=== PATIENT | female | born 1975 | race Two or more races ===

== ENCOUNTER → 2022-10-21 | Outpatient (CLI) | payer OTHER ==
[2022-10-21 15:58] LABS: BASO % 0.4 % (0.0-1.0); EOS # 0.1 10^3/uL (0.0-0.5); EOS % 0.7 % (0.0-3.0); HEMATOCRIT 40.3 % (36.0-47.0); HEMOGLOBIN 13.1 g/dl (12.0-15.5); LYMPH # 2.2 10^3/uL (1.5-5.0); LYMPH % 32.3 % (24.0-44.0); MEAN CORPUSCULAR HGB CONC 32.5 g/dl (32.0-36.5); MEAN CORPUSCULAR VOLUME 95.5 fl (80.0-96.0); MONO # 0.7 10^3/uL (0.0-0.8); MONO % 9.8 % (2.0-8.0); NEUTROPHILS # 3.9 10^3/uL (1.5-8.5); NEUTROPHILS % 56.5 % (36.0-66.0); PLATELET COUNT, AUTOMATED 197 10^3/uL (150-450); RED BLOOD COUNT 4.22 10^6/uL (4.00-5.40); WHITE BLOOD COUNT 6.8 10^3/uL (4.0-10.0)
== END ==
LOC: M PLALAB 14:15
PROVIDERS: ATTEND Internal Medicine Hematology
DX: I82.90 Acute embolism and thrombosis of unspecified vein (principal)

== ENCOUNTER 2022-11-05 13:30 | Inpatient (IN) | payer OTHER ==
[~2022-11-05] VITALS: Ht 170.2 cm; Wt 88.4 kg
[2022-11-05] MEDS ORDERED: AMLO10TA PO (13:43)
[2022-11-05] MEDS ORDERED: TOPI100T9 PO (13:43)
[2022-11-05] MEDS ORDERED: SERT-141 PO (13:43)
[2022-11-05] MEDS ORDERED: ELIQ5TAB PO (13:43)
[2022-11-05] MEDS ORDERED: HYDR50TA70 PO ×2 (13:43→21:12)
[2022-11-05] MEDS ORDERED: MORPHINE 2 MG/ML 1ML VIAL IV ONE (14:05)
[2022-11-05 15:20] LABS: BASO % 0.3 % (0.0-1.0); EOS # 0.1 10^3/uL (0.0-0.5); EOS % 0.7 % (0.0-3.0); HEMATOCRIT 35.9 % (36.0-47.0); HEMOGLOBIN 11.6 g/dl (12.0-15.5); LYMPH # 1.9 10^3/uL (1.5-5.0); LYMPH % 27.9 % (24.0-44.0); MEAN CORPUSCULAR HGB CONC 32.3 g/dl (32.0-36.5); MONO # 0.6 10^3/uL (0.0-0.8); MONO % 9.2 % (2.0-8.0); NEUTROPHILS # 4.2 10^3/uL (1.5-8.5); NEUTROPHILS % 61.6 % (36.0-66.0); PLATELET COUNT, AUTOMATED 309 10^3/uL (150-450); RED BLOOD COUNT 3.74 10^6/uL (4.00-5.40); WHITE BLOOD COUNT 6.9 10^3/uL (4.0-10.0)
[2022-11-05 15:41] LABS: CPK CREATINE PHOSPHOKINASE 79 U/L (34-145)
[2022-11-05 15:42] LABS: ALBUMIN 3.4 G/DL (3.2-5.2); ALKALINE PHOSPHATASE 94 U/L (46-116); ALT/SGPT 13 U/L (7.0-40); AST/SGOT 9 U/L (<34); BILIRUBIN,DIRECT < 0.1 MG/DL (<0.4); BILIRUBIN,TOTAL 0.3 MG/DL (0.3-1.2); BLOOD UREA NITROGEN 14 MG/DL (9-23); CALCIUM LEVEL 10.6 MG/DL (8.5-10.1); CARBON DIOXIDE LEVEL 22 MMOL/L (20-31); CHLORIDE LEVEL 111 MMOL/L (98-107); CK-MB VALUE MASS < 1.0 NG/ML (<3.6); CREATININE FOR GFR 0.67 MG/DL (0.55-1.30); GLOMERULAR FILTRATION RATE > 60.0 (>58); GLUCOSE, FASTING 91 MG/DL (60-100); MB/CK RELATIVE INDEX 1.26 (< OR =4); SODIUM LEVEL 139 MMOL/L (136-145); TOTAL PROTEIN 6.9 G/DL (5.7-8.2)
[2022-11-05] MEDS ORDERED: ISOVUE-370 76% 100ML VIAL As Ordered ONE (16:38)
[2022-11-05 16:56] LABS: ABG BASE EXCESS -4.3 (-2.0-2.0); ABG HCO3 19.6 MMOL/L (22.0-26.0); ABG O2 SATURATION 97.4 % (95.0-99.0); ABG PARTIAL PRESSURE CO2 32.4 mmHg (35.0-45.0); ABG PARTIAL PRESSURE O2 91.4 mmHg (75.0-100.0); ABG STANDARD HCO3 20.9 MMOL/L. (22.0-26.0); ABG TOTAL CO2 20.6 MMOL/L (22.0-29.0)
[2022-11-05 18:54] VITALS: O2SAT 89
[2022-11-05 18:57] LABS: CK-MB VALUE MASS 1.2 NG/ML (<3.6)
[2022-11-05 19:01] LABS: MB/CK RELATIVE INDEX 1.64 (< OR =4)
[2022-11-05] MEDS ORDERED: MED REC IN PROGRESS XX SCH (19:05)
[2022-11-05] MEDS ORDERED: LIDOCAINE 5% (LIDODERM) PATCH TD ONE (20:00)
[2022-11-05] MEDS ORDERED: TEMAZEPAM 7.5 MG CAP PO PRN (20:00)
[2022-11-05] MEDS ORDERED: ACETAMINOPHEN TAB 650MG DOSE (2X325MG) PO PRN (20:00)
[2022-11-05 20:48] LABS: FERRITIN 25.7 NG/ML (7.3-270.7)
[2022-11-05] MEDS ORDERED: ACET-840 PO (21:13)
[2022-11-05] MEDS ORDERED: MELA3TAB7 PO (21:14)
[2022-11-05] MEDS ORDERED: HOME MED LIST COMPLETE! XX SCH (21:15)
[2022-11-05 21:23] LABS: INR 1.03; PROTHROMBIN TIME 13.7 SECONDS (12.5-14.5)
[2022-11-05 21:24] LABS: PARTIAL THROMBOPLASTIN TIME 31.5 SECONDS (24.8-34.2)
[2022-11-05] MEDS: ENOXAPARIN 100MG/1ML SYRINGE (J1650 PER 10MG) SC SCH (21:38)
[2022-11-05 22:28] VITALS: BP 136/70; TEMP 97.1; O2SAT 100
[2022-11-05] MEDS: MORPHINE 2 MG/ML 1ML VIAL IV PRN (22:49)
[2022-11-05] MEDS: TOPIRAMATE (TopAMAX) 100 MG TAB PO SCH (23:14)
[2022-11-06] MEDS ORDERED: NS 1,000 ML IV SCH (02:05)
[2022-11-06 03:58] VITALS: BP 104/59; TEMP 97; O2SAT 96
[2022-11-06] MEDS: MORPHINE 2 MG/ML 1ML VIAL IV PRN ×4 (04:12→21:29)
[2022-11-06 04:40] VITALS: BP 128/78
[2022-11-06 06:39] LABS: HEMATOCRIT 33.6 % (36.0-47.0); HEMOGLOBIN 10.9 g/dl (12.0-15.5); MEAN CORPUSCULAR HEMOGLOBIN 31.1 pg (27.0-33.0); MEAN CORPUSCULAR HGB CONC 32.4 g/dl (32.0-36.5); PLATELET COUNT, AUTOMATED 268 10^3/uL (150-450); WHITE BLOOD COUNT 5.3 10^3/uL (4.0-10.0)
[2022-11-06 07:15] LABS: PROCALCITONIN <0.04 ng/ml
[2022-11-06 07:21] LABS: ALKALINE PHOSPHATASE 90 U/L (46-116); ALT/SGPT 12 U/L (7.0-40); AST/SGOT < 8 U/L (<34); BILIRUBIN,TOTAL 0.3 MG/DL (0.3-1.2); BLOOD UREA NITROGEN 14 MG/DL (9-23); CALCIUM LEVEL 9.1 MG/DL (8.5-10.1); CARBON DIOXIDE LEVEL 21 MMOL/L (20-31); CHLORIDE LEVEL 113 MMOL/L (98-107); CREATININE FOR GFR 0.64 MG/DL (0.55-1.30); GLOMERULAR FILTRATION RATE > 60.0 (>58); GLUCOSE, FASTING 92 MG/DL (60-100); MAGNESIUM LEVEL 1.9 MG/DL (1.8-2.4); POTASSIUM SERUM 3.8 MMOL/L (3.5-5.1); SODIUM LEVEL 141 MMOL/L (136-145)
[2022-11-06 08:02] VITALS: BP 112/76; TEMP 97.6; O2SAT 96
[2022-11-06] MEDS: ENOXAPARIN 100MG/1ML SYRINGE (J1650 PER 10MG) SC SCH ×2 (09:26→21:03)
[2022-11-06] MEDS: FERROUS SULFATE 325MG TAB PO SCH (09:26)
[2022-11-06] MEDS: SERTRALINE HCL 50 MG TAB PO SCH (09:26)
[2022-11-06 15:57] VITALS: BP 139/86; TEMP 97.5; O2SAT 98
[2022-11-06] MEDS ORDERED: PILL CUTTER 1 EACH XX ONE (16:07)
[2022-11-06] MEDS: ACETAMINOPHEN TAB 650MG DOSE (2X325MG) PO SCH ×2 (16:11→21:03)
[2022-11-06] MEDS: WARFARIN SOD 5MG TAB PO SCH (16:11)
[2022-11-06 16:38] LABS: INR 0.95; PARTIAL THROMBOPLASTIN TIME 35.4 SECONDS (24.8-34.2); PROTHROMBIN TIME 12.9 SECONDS (12.5-14.5)
[2022-11-06 19:06] VITALS: O2SAT 96
[2022-11-06 20:56] VITALS: BP 135/79; TEMP 97.9; O2SAT 96
[2022-11-06] MEDS: TOPIRAMATE (TopAMAX) 100 MG TAB PO SCH (21:01)
[2022-11-07] MEDS: MORPHINE 2 MG/ML 1ML VIAL IV PRN ×2 (01:50→05:35)
[2022-11-07 05:45] VITALS: BP 120/68; TEMP 97.7; O2SAT 94
[2022-11-07 06:10] LABS: HEMATOCRIT 36.4 % (36.0-47.0); HEMOGLOBIN 11.6 g/dl (12.0-15.5); MEAN CORPUSCULAR HEMOGLOBIN 30.7 pg (27.0-33.0); MEAN CORPUSCULAR HGB CONC 31.9 g/dl (32.0-36.5); MEAN CORPUSCULAR VOLUME 96.3 fl (80.0-96.0); PLATELET COUNT, AUTOMATED 276 10^3/uL (150-450); RED BLOOD COUNT 3.78 10^6/uL (4.00-5.40); WHITE BLOOD COUNT 5.4 10^3/uL (4.0-10.0)
[2022-11-07 06:15] LABS: INR 0.95; PROTHROMBIN TIME 12.9 SECONDS (12.5-14.5)
[2022-11-07 06:16] LABS: PARTIAL THROMBOPLASTIN TIME 37.7 SECONDS (24.8-34.2)
[2022-11-07 06:25] LABS: ALBUMIN 3.1 G/DL (3.2-5.2); ALKALINE PHOSPHATASE 97 U/L (46-116); ALT/SGPT 21 U/L (7.0-40); AST/SGOT 21 U/L (<34); BILIRUBIN,TOTAL 0.3 MG/DL (0.3-1.2); BLOOD UREA NITROGEN 10 MG/DL (9-23); CALCIUM LEVEL 9.2 MG/DL (8.5-10.1); CARBON DIOXIDE LEVEL 22 MMOL/L (20-31); CHLORIDE LEVEL 111 MMOL/L (98-107); CREATININE FOR GFR 0.67 MG/DL (0.55-1.30); GLOMERULAR FILTRATION RATE > 60.0 (>58); GLUCOSE, FASTING 84 MG/DL (60-100); SODIUM LEVEL 139 MMOL/L (136-145); TOTAL PROTEIN 6.3 G/DL (5.7-8.2)
[2022-11-07] MEDS ORDERED: KETOROLAC 30 MG/ML 1ML VIAL IV ONE (08:20)
[2022-11-07] MEDS ORDERED: hydrOXYzine 50 MG TAB PO PRN (08:20)
[2022-11-07] MEDS: ENOXAPARIN 100MG/1ML SYRINGE (J1650 PER 10MG) SC SCH ×2 (08:57→21:18)
[2022-11-07] MEDS: SERTRALINE HCL 50 MG TAB PO SCH (08:58)
[2022-11-07] MEDS: FERROUS SULFATE 325MG TAB PO SCH (08:58)
[2022-11-07] MEDS: ACETAMINOPHEN TAB 650MG DOSE (2X325MG) PO SCH (08:58)
[2022-11-07 14:00] VITALS: BP 116/71; TEMP 97.7; O2SAT 96
[2022-11-07] MEDS: PERCOCET 5MG/325MG TAB PO PRN ×2 (14:17→21:15)
[2022-11-07] MEDS: IBUPROFEN 600MG TAB PO SCH ×2 (15:29→21:15)
[2022-11-07] MEDS: WARFARIN SOD 5MG TAB PO SCH (17:20)
[2022-11-07] MEDS: TOPIRAMATE (TopAMAX) 100 MG TAB PO SCH (21:14)
[2022-11-07] MEDS: RAMELTEON 8 MG TAB (ROZEREM) PO SCH (21:15)
[2022-11-07 22:00] VITALS: BP 122/74; TEMP 98.2; O2SAT 97
[2022-11-08] MEDS: PERCOCET 5MG/325MG TAB PO PRN ×4 (03:11→21:20)
[2022-11-08 06:00] VITALS: BP 116/74; TEMP 97.5; O2SAT 97
[2022-11-08] MEDS: IBUPROFEN 600MG TAB PO SCH ×3 (06:04→21:19)
[2022-11-08 06:33] LABS: HEMATOCRIT 35.2 % (36.0-47.0); HEMOGLOBIN 11.4 g/dl (12.0-15.5); MEAN CORPUSCULAR HEMOGLOBIN 31.1 pg (27.0-33.0); MEAN CORPUSCULAR HGB CONC 32.4 g/dl (32.0-36.5); MEAN CORPUSCULAR VOLUME 95.9 fl (80.0-96.0); PLATELET COUNT, AUTOMATED 280 10^3/uL (150-450); RED BLOOD COUNT 3.67 10^6/uL (4.00-5.40); WHITE BLOOD COUNT 4.8 10^3/uL (4.0-10.0)
[2022-11-08 06:41] VITALS: O2SAT 95
[2022-11-08 06:47] LABS: INR 1.09; PROTHROMBIN TIME 14.3 SECONDS (12.5-14.5)
[2022-11-08 06:48] LABS: PARTIAL THROMBOPLASTIN TIME 41.7 SECONDS (24.8-34.2)
[2022-11-08 07:09] LABS: ALKALINE PHOSPHATASE 98 U/L (46-116); ALT/SGPT 21 U/L (7.0-40); AST/SGOT 18 U/L (<34); BILIRUBIN,TOTAL 0.2 MG/DL (0.3-1.2); BLOOD UREA NITROGEN 14 MG/DL (9-23); CALCIUM LEVEL 9.3 MG/DL (8.5-10.1); CARBON DIOXIDE LEVEL 21 MMOL/L (20-31); CHLORIDE LEVEL 110 MMOL/L (98-107); CREATININE FOR GFR 0.73 MG/DL (0.55-1.30); GLOMERULAR FILTRATION RATE > 60.0 (>58); GLUCOSE, FASTING 89 MG/DL (60-100); POTASSIUM SERUM 4.1 MMOL/L (3.5-5.1); SODIUM LEVEL 140 MMOL/L (136-145); TOTAL PROTEIN 6.2 G/DL (5.7-8.2)
[2022-11-08] MEDS: ENOXAPARIN 100MG/1ML SYRINGE (J1650 PER 10MG) SC SCH ×2 (09:25→21:20)
[2022-11-08] MEDS: FERROUS SULFATE 325MG TAB PO SCH (09:26)
[2022-11-08] MEDS: SERTRALINE HCL 50 MG TAB PO SCH (09:26)
[2022-11-08 14:00] VITALS: BP 135/75; TEMP 97.7; O2SAT 97
[2022-11-08] MEDS: WARFARIN SOD 5MG TAB PO SCH (17:18)
[2022-11-08] MEDS: RAMELTEON 8 MG TAB (ROZEREM) PO SCH (21:19)
[2022-11-08] MEDS: TOPIRAMATE (TopAMAX) 100 MG TAB PO SCH (21:19)
[2022-11-08 21:54] VITALS: BP 132/75; TEMP 97.9; O2SAT 97
[2022-11-08 22:00] VITALS: O2SAT 96
[2022-11-09] MEDS: PERCOCET 5MG/325MG TAB PO PRN ×4 (03:58→21:26)
[2022-11-09 06:00] VITALS: BP 122/72; TEMP 97.7; O2SAT 96
[2022-11-09] MEDS: IBUPROFEN 600MG TAB PO SCH ×3 (06:39→21:22)
[2022-11-09 06:43] LABS: HEMATOCRIT 34.9 % (36.0-47.0); HEMOGLOBIN 11.2 g/dl (12.0-15.5); MEAN CORPUSCULAR HEMOGLOBIN 30.7 pg (27.0-33.0); MEAN CORPUSCULAR HGB CONC 32.1 g/dl (32.0-36.5); MEAN CORPUSCULAR VOLUME 95.6 fl (80.0-96.0); PLATELET COUNT, AUTOMATED 238 10^3/uL (150-450); RED BLOOD COUNT 3.65 10^6/uL (4.00-5.40); WHITE BLOOD COUNT 4.9 10^3/uL (4.0-10.0)
[2022-11-09 06:54] VITALS: O2SAT 96
[2022-11-09 06:59] LABS: INR 1.46
[2022-11-09 07:00] LABS: PARTIAL THROMBOPLASTIN TIME 42.8 SECONDS (24.8-34.2)
[2022-11-09 07:09] LABS: ALBUMIN 2.9 G/DL (3.2-5.2); ALKALINE PHOSPHATASE 94 U/L (46-116); ALT/SGPT 21 U/L (7.0-40); AST/SGOT 18 U/L (<34); BILIRUBIN,TOTAL 0.2 MG/DL (0.3-1.2); BLOOD UREA NITROGEN 16 MG/DL (9-23); CALCIUM LEVEL 9.5 MG/DL (8.5-10.1); CARBON DIOXIDE LEVEL 22 MMOL/L (20-31); CHLORIDE LEVEL 109 MMOL/L (98-107); CREATININE FOR GFR 0.72 MG/DL (0.55-1.30); GLOMERULAR FILTRATION RATE > 60.0 (>58); GLUCOSE, FASTING 84 MG/DL (60-100); POTASSIUM SERUM 4.2 MMOL/L (3.5-5.1); SODIUM LEVEL 139 MMOL/L (136-145)
[2022-11-09] MEDS ORDERED: traMADol 50 MG TAB PO PRN (07:20)
[2022-11-09] MEDS: FERROUS SULFATE 325MG TAB PO SCH (09:21)
[2022-11-09] MEDS: ENOXAPARIN 100MG/1ML SYRINGE (J1650 PER 10MG) SC SCH ×2 (09:21→21:21)
[2022-11-09] MEDS: SERTRALINE HCL 50 MG TAB PO SCH (09:22)
[2022-11-09 09:24] VITALS: BP 123/78
[2022-11-09 14:00] VITALS: BP 105/74; TEMP 97.5; O2SAT 96
[2022-11-09] MEDS ORDERED: WARFARIN SOD 7.5MG TAB PO SCH (17:00)
[2022-11-09] MEDS ORDERED: WARFARIN SOD 5MG TAB PO SCH (17:00)
[2022-11-09 20:50] VITALS: BP 133/83; TEMP 97.7; O2SAT 97
[2022-11-09] MEDS: RAMELTEON 8 MG TAB (ROZEREM) PO SCH (21:22)
[2022-11-09] MEDS: TOPIRAMATE (TopAMAX) 100 MG TAB PO SCH (21:22)
[2022-11-10] MEDS: PERCOCET 5MG/325MG TAB PO PRN ×2 (04:16→09:09)
[2022-11-10] MEDS: IBUPROFEN 600MG TAB PO SCH (06:07)
[2022-11-10 06:14] VITALS: BP 110/57; TEMP 98.1; O2SAT 98
[2022-11-10 06:22] LABS: HEMATOCRIT 35.4 % (36.0-47.0); HEMOGLOBIN 11.7 g/dl (12.0-15.5); MEAN CORPUSCULAR HEMOGLOBIN 31.1 pg (27.0-33.0); MEAN CORPUSCULAR HGB CONC 33.1 g/dl (32.0-36.5); MEAN CORPUSCULAR VOLUME 94.1 fl (80.0-96.0); PLATELET COUNT, AUTOMATED 274 10^3/uL (150-450); RED BLOOD COUNT 3.76 10^6/uL (4.00-5.40)
[2022-11-10 06:37] LABS: INR 1.65; PROTHROMBIN TIME 19.8 SECONDS (12.5-14.5)
[2022-11-10 06:38] LABS: PARTIAL THROMBOPLASTIN TIME 47.6 SECONDS (24.8-34.2)
[2022-11-10 06:50] LABS: ALKALINE PHOSPHATASE 99 U/L (46-116); ALT/SGPT 27 U/L (7.0-40); AST/SGOT 24 U/L (<34); BILIRUBIN,TOTAL 0.2 MG/DL (0.3-1.2); BLOOD UREA NITROGEN 16 MG/DL (9-23); CALCIUM LEVEL 10.4 MG/DL (8.5-10.1); CARBON DIOXIDE LEVEL 22 MMOL/L (20-31); CHLORIDE LEVEL 110 MMOL/L (98-107); CREATININE FOR GFR 0.75 MG/DL (0.55-1.30); GLOMERULAR FILTRATION RATE > 60.0 (>58); GLUCOSE, FASTING 83 MG/DL (60-100); POTASSIUM SERUM 3.8 MMOL/L (3.5-5.1); SODIUM LEVEL 138 MMOL/L (136-145); TOTAL PROTEIN 6.2 G/DL (5.7-8.2)
[2022-11-10] MEDS ORDERED: LOVE0.8I SC (07:53)
[2022-11-10] MEDS ORDERED: ACET1TAB55 PO (07:53)
[2022-11-10] MEDS ORDERED: WARF-23 PO (07:53)
[2022-11-10] MEDS ORDERED: FERR1TAB8 PO (07:53)
[2022-11-10] MEDS: ENOXAPARIN 100MG/1ML SYRINGE (J1650 PER 10MG) SC SCH (09:02)
[2022-11-10] MEDS: FERROUS SULFATE 325MG TAB PO SCH (09:05)
[2022-11-10] MEDS: SERTRALINE HCL 50 MG TAB PO SCH (09:05)
[2022-11-10] MEDS ORDERED: TRAM50TA2 PO (13:25)
== END 2022-11-10 12:49 | disposition home or self-care (01) | DRG 176 ==
LOC: M ED 13:30 → M ED INP 19:57 → M MS4PR 22:28 → M MSPAV 11-06 16:04
PROVIDERS: ADMIT Internal Medicine; ATTEND Internal Medicine
DX: I26.99 Other pulmonary embolism without acute cor pulmonale (principal); D50.9 Iron deficiency anemia, unspecified; G43.909 Migraine, unspecified, not intractable, without status migrainosus; F41.9 Anxiety disorder, unspecified; Z91.040 Latex allergy status; Z88.8 Allergy status to other drugs, medicaments and biological substances; Z79.899 Other long term (current) drug therapy; Z86.718 Personal history of other venous thrombosis and embolism; M19.90 Unspecified osteoarthritis, unspecified site

== ENCOUNTER → 2022-11-20 | Outpatient (CLI) | payer OTHER ==
[~2022-11-20] MED LIST: ACET-840 PO; ACET1TAB55 PO; AMLO10TA PO; ELIQ5TAB PO; FERR1TAB8 PO; HYDR50TA70 PO; LOVE0.8I SC; MELA3TAB7 PO; SERT-141 PO; TOPI100T9 PO; TRAM50TA2 PO; WARF-23 PO
[2022-11-20 13:35] LABS: INR 3.43; PROTHROMBIN TIME 35.1 SECONDS (12.5-14.5)
== END ==
LOC: M PLALAB 11:43
PROVIDERS: ATTEND Internal Medicine Hematology
DX: I82.90 Acute embolism and thrombosis of unspecified vein (principal)

== ENCOUNTER → 2022-11-27 | Outpatient (CLI) | payer OTHER ==
[2022-11-27 13:36] LABS: INR 3.24; PROTHROMBIN TIME 33.6 SECONDS (12.5-14.5)
== END ==
LOC: M PLALAB 10:00
PROVIDERS: ATTEND Internal Medicine Hematology
DX: I82.90 Acute embolism and thrombosis of unspecified vein (principal)

== ENCOUNTER → 2022-12-04 | Outpatient (CLI) | payer OTHER ==
[2022-12-04 13:44] LABS: INR 2.37; PROTHROMBIN TIME 25.3 SECONDS (12.5-14.5)
== END ==
LOC: M PLALAB 11:27
PROVIDERS: ATTEND Internal Medicine Hematology
DX: I82.90 Acute embolism and thrombosis of unspecified vein (principal)

== ENCOUNTER → 2022-12-18 | Outpatient (CLI) | payer OTHER | LOC: M PLALAB 09:25 | PROVIDERS: ATTEND Internal Medicine Hematology | DX: I82.90 Acute embolism and thrombosis of unspecified vein (principal) ==

== ENCOUNTER → 2022-12-22 | Outpatient (REF) | payer OTHER ==
[2022-12-22 16:20] LABS: INR 1.65; PROTHROMBIN TIME 19.1 SECONDS (12.5-14.5)
== END ==
LOC: M LABDRAWP 15:26
PROVIDERS: ATTEND Internal Medicine Hematology
DX: I82.90 Acute embolism and thrombosis of unspecified vein (principal)

== ENCOUNTER → 2022-12-29 | Outpatient (CLI) | payer OTHER ==
[2022-12-29 12:40] LABS: INR 1.64
== END ==
LOC: M LAB 11:55
PROVIDERS: ATTEND Internal Medicine Hematology
DX: Z79.01 Long term (current) use of anticoagulants (principal)

== ENCOUNTER → 2023-01-08 | Outpatient (CLI) | payer OTHER ==
[2023-01-08 17:05] LABS: INR 2.29; PROTHROMBIN TIME 24.6 SECONDS (12.5-14.5)
== END ==
LOC: M PLALAB 15:00
PROVIDERS: ATTEND Internal Medicine Hematology
DX: I82.90 Acute embolism and thrombosis of unspecified vein (principal)
CPT/HCPCS: 36415; 85610; 94010; G0463

== ENCOUNTER → 2023-01-12 | Outpatient (CLI) | payer OTHER ==
[~2023-01-12] MED LIST changes: +ISOVUE-370 76% 100ML VIAL As Ordered ONE
== END ==
LOC: M RAD 07:03
PROVIDERS: ATTEND Internal Medicine Pulmonary Disease
DX: I26.09 Other pulmonary embolism with acute cor pulmonale (principal)
CPT/HCPCS: 71275; Q9967

== ENCOUNTER → 2023-02-05 | Outpatient (CLI) | payer OTHER ==
[~2023-02-05] MED LIST changes: -ISOVUE-370 76% 100ML VIAL As Ordered ONE
[2023-02-05 13:25] LABS: INR 2.94; PROTHROMBIN TIME 29.9 SECONDS (12.5-14.5)
== END ==
LOC: M PLALAB 09:42
PROVIDERS: ATTEND Internal Medicine Hematology
DX: I82.90 Acute embolism and thrombosis of unspecified vein (principal); Z79.01 Long term (current) use of anticoagulants

== ENCOUNTER → 2023-03-24 | Outpatient (CLI) | payer OTHER ==
[2023-03-24 16:08] LABS: INR 4.25; PROTHROMBIN TIME 39.3 SECONDS (12.5-14.5)
== END ==
LOC: M PLALAB 13:55
PROVIDERS: ATTEND Internal Medicine Hematology
DX: I82.90 Acute embolism and thrombosis of unspecified vein (principal)
CPT/HCPCS: 36415; 85610; G0463

== ENCOUNTER → 2023-03-31 | Outpatient (CLI) | payer OTHER ==
[2023-03-31 15:39] LABS: APPEARANCE, URINE HAZY (CLEAR); BACTERIA, URINE AUTO NEGATIVE (NEGATIVE); BILIRUBIN, URINE AUTO NEGATIVE (NEGATIVE); BLOOD, URINE BLOOD 1+ (NEGATIVE); COLOR, URINE YELLOW (YELLOW); GLUCOSE, URINE (UA) AUTO NEGATIVE (NEGATIVE); KETONE, URINE AUTO NEGATIVE (NEGATIVE); LEUKOCYTE ESTERASE, URINE AUTO NEGATIVE (NEGATIVE); MUCUS, URINE SMALL (NEGATIVE); NITRITE, URINE AUTO NEGATIVE (NEGATIVE); PROTEIN, URINE AUTO 1+ mg/dL (NEGATIVE); RBC, URINE AUTO 0 /HPF (0-3); SPECIFIC GRAVITY URINE AUTO 1.024 (1.002-1.035); SQUAMOUS EPITHELIAL CELL UR AU 8 /HPF (0-6); WBC, URINE AUTO 1 /HPF (0-3)
[2023-03-31 15:50] LABS: HEMATOCRIT 40.1 % (36.0-47.0); HEMOGLOBIN 13.1 g/dl (12.0-15.5); MEAN CORPUSCULAR HEMOGLOBIN 31.2 pg (27.0-33.0); MEAN CORPUSCULAR HGB CONC 32.7 g/dl (32.0-36.5); MEAN CORPUSCULAR VOLUME 95.5 fl (80.0-96.0); PLATELET COUNT, AUTOMATED 247 10^3/uL (150-450); WHITE BLOOD COUNT 5.4 10^3/uL (4.0-10.0)
[2023-03-31 15:52] LABS: BLOOD UREA NITROGEN 11 MG/DL (9-23); CALCIUM LEVEL 9.3 MG/DL (8.5-10.1); CARBON DIOXIDE LEVEL 19 MMOL/L (20-31); CHLORIDE LEVEL 114 MMOL/L (98-107); GLOMERULAR FILTRATION RATE > 60.0 (>58); GLUCOSE, FASTING 96 MG/DL (60-100); POTASSIUM SERUM 3.7 MMOL/L (3.5-5.1); SODIUM LEVEL 143 MMOL/L (136-145); TOTAL IRON BINDING CAPACITY 380 UG/DL (250-425)
[2023-03-31 15:53] LABS: IRON (FE) 75 UG/DL (50-170); PERCENT SATURATION 19.7 % (13.2-45.0)
[2023-03-31 15:55] LABS: VITAMIN B12 LEVEL 758 PG/ML (211-911)
[2023-03-31 16:04] LABS: INR 4.34; PROTHROMBIN TIME 39.9 SECONDS (12.5-14.5)
== END ==
LOC: M PLALAB 12:17
PROVIDERS: ATTEND Internal Medicine Hematology
DX: I82.90 Acute embolism and thrombosis of unspecified vein (principal); D50.9 Iron deficiency anemia, unspecified

== ENCOUNTER → 2023-04-06 | Outpatient (CLI) | payer OTHER ==
[2023-04-06 15:55] LABS: INR 3.43; PROTHROMBIN TIME 33.3 SECONDS (12.5-14.5)
== END ==
LOC: M PLALAB 14:06
PROVIDERS: ATTEND Internal Medicine Hematology
DX: I82.90 Acute embolism and thrombosis of unspecified vein (principal)

== ENCOUNTER 2023-04-16 09:03 | Inpatient (IN) | payer OTHER ==
[2023-04-16] VITALS (7 sets, daily range): BP systolic 109–133; BP diastolic 70–88; TEMP 97.3–97.9; O2SAT 95–97
[~2023-04-16] VITALS: Ht 171.4 cm; Wt 101.0 kg
[~2023-04-16 09:03] MED LIST changes: +LOVE1INJ SC; +NORE5TAB PO; +WARF-22 PO
[2023-04-16] MEDS ORDERED: LR 1,000 ML IV SCH ×2 (09:40→16:00)
[2023-04-16 09:59] LABS: HEMOGLOBIN 13.3 g/dl (12.0-15.5); MEAN CORPUSCULAR HEMOGLOBIN 31.5 pg (27.0-33.0); MEAN CORPUSCULAR HGB CONC 33.3 g/dl (32.0-36.5); MEAN CORPUSCULAR VOLUME 94.8 fl (80.0-96.0); PLATELET COUNT, AUTOMATED 240 10^3/uL (150-450); RED BLOOD COUNT 4.22 10^6/uL (4.00-5.40); WHITE BLOOD COUNT 7.2 10^3/uL (4.0-10.0)
[2023-04-16 10:15] LABS: INR 1.05; PROTHROMBIN TIME 13.4 SECONDS (12.5-14.5)
[2023-04-16 10:16] LABS: ALBUMIN 3.6 G/DL (3.2-5.2); ALKALINE PHOSPHATASE 67 U/L (46-116); ALT/SGPT 20 U/L (7.0-40); AST/SGOT 21 U/L (<34); BILIRUBIN,TOTAL 0.5 MG/DL (0.3-1.2); BLOOD UREA NITROGEN 13 MG/DL (9-23); CALCIUM LEVEL 9.9 MG/DL (8.5-10.1); CARBON DIOXIDE LEVEL 22 MMOL/L (20-31); CHLORIDE LEVEL 110 MMOL/L (98-107); CREATININE FOR GFR 0.76 MG/DL (0.55-1.30); GLOMERULAR FILTRATION RATE > 60.0 (>58); GLUCOSE, FASTING 109 MG/DL (60-100); SODIUM LEVEL 141 MMOL/L (136-145); TOTAL PROTEIN 7.3 G/DL (5.7-8.2)
[2023-04-16] MEDS ORDERED: cefoTEtan DISODIUM 2 GM in D5W MINI-BAG PLUS 50 ML IV ONE (11:30)
[2023-04-16] MEDS ORDERED: ENOXAPARIN 40MG/0.4ML SYRINGE (J1650 PER 10MG) SC ONE (11:30)
[2023-04-16] MEDS ORDERED: fentaNYL 250 MCG/5 ML INJECTION As Ordered ONE (11:57)
[2023-04-16] MEDS ORDERED: MIDAZOLAM INJ 2MG/2ML VIAL As Ordered ONE (11:58)
[2023-04-16] MEDS ORDERED: HYDROmorphone HCL 2MG/ML 1ML VIAL As Ordered ONE (12:42)
[2023-04-16] MEDS ORDERED: KETAMINE HCL 200MG/20ML VIAL As Ordered ONE (12:53)
[2023-04-16] MEDS ORDERED: VECURONIUM BROMIDE 10MG VIAL As Ordered ONE (13:24)
[2023-04-16] MEDS ORDERED: propofoL 200 MG/20 ML VIAL As Ordered ONE (13:24)
[2023-04-16] MEDS: oxyCODONE 5MG TAB PO PRN ×4 (14:40→23:16)
[2023-04-16] MEDS ORDERED: SUGAMMADEX SODIUM 500 MG/5 ML VIAL (BRIDION) As Ordered ONE (14:44)
[2023-04-16] MEDS ORDERED: fentaNYL 100 MCG/2 ML INJECTION As Ordered ONE (14:53)
[2023-04-16] MEDS ORDERED: ESMOLOL INJ 100MG/10ML VIAL As Ordered ONE (15:09)
[2023-04-16] MEDS ORDERED: ACETAMINOPHEN 500 MG TAB PO PRN (15:50)
[2023-04-16] MEDS ORDERED: oxyCODONE 5MG TAB PO PRN (15:50)
[2023-04-16] MEDS ORDERED: ONDANSETRON 4MG 2ML VIAL IV PRN ×2 (15:50→16:00)
[2023-04-16] MEDS ORDERED: PROMETHAZINE 25MG/ML 1ML VIAL IV PRN (15:50)
[2023-04-16] MEDS ORDERED: fentaNYL 100 MCG/2 ML INJECTION IV PRN (16:00)
[2023-04-16] MEDS ORDERED: HYDROMORPHONE HCL 0.5 MG/ 0.5 ML SYRINGE IV PRN (16:00)
[2023-04-16] MEDS: LR 1,000 ML IV SCH (17:38)
[2023-04-16] MEDS: KETOROLAC 30 MG/ML 1ML VIAL IV SCH (20:53)
[2023-04-16] MEDS: hydrOXYzine 50 MG TAB PO SCH (20:53)
[2023-04-17] VITALS (8 sets, daily range): BP systolic 105–116; BP diastolic 64–75; TEMP 97.3–97.9; O2SAT 93–97
[2023-04-17] MEDS ORDERED: MOM 30ML SUSPENSION UDC PO PRN (01:15)
[2023-04-17] MEDS: LR 1,000 ML IV SCH (01:41)
[2023-04-17] MEDS: KETOROLAC 30 MG/ML 1ML VIAL IV SCH (01:44)
[2023-04-17 06:20] LABS: BASO % 0.1 % (0.0-1.0); EOS % 0.1 % (0.0-3.0); HEMATOCRIT 34.2 % (36.0-47.0); LYMPH # 2.1 10^3/uL (1.5-5.0); LYMPH % 17.4 % (24.0-44.0); MEAN CORPUSCULAR HEMOGLOBIN 31.4 pg (27.0-33.0); MEAN CORPUSCULAR HGB CONC 32.5 g/dl (32.0-36.5); MEAN CORPUSCULAR VOLUME 96.6 fl (80.0-96.0); MONO # 0.9 10^3/uL (0.0-0.8); MONO % 7.8 % (2.0-8.0); NEUTROPHILS # 8.8 10^3/uL (1.5-8.5); NEUTROPHILS % 74.3 % (36.0-66.0); PLATELET COUNT, AUTOMATED 209 10^3/uL (150-450); RED BLOOD COUNT 3.54 10^6/uL (4.00-5.40); WHITE BLOOD COUNT 11.9 10^3/uL (4.0-10.0)
[2023-04-17 06:22] LABS: HEMOGLOBIN 11.1 g/dl (12.0-15.5)
[2023-04-17] MEDS: oxyCODONE 5MG TAB PO PRN ×3 (06:36→18:03)
[2023-04-17 06:38] LABS: INR 1.07; PROTHROMBIN TIME 13.6 SECONDS (12.5-14.5)
[2023-04-17 06:40] LABS: CREATININE FOR GFR 0.71 MG/DL (0.55-1.30); GLOMERULAR FILTRATION RATE > 60.0 (>58)
[2023-04-17] MEDS ORDERED: FERR1TAB8 PO (08:01)
[2023-04-17] MEDS ORDERED: TOPI100T9 PO (08:01)
[2023-04-17] MEDS ORDERED: ENOX100I3 SC (08:01)
[2023-04-17] MEDS ORDERED: OXYC-517 PO (08:01)
[2023-04-17] MEDS ORDERED: HYDR50TA70 PO (08:01)
[2023-04-17] MEDS: TOPIRAMATE (TopAMAX) 100 MG TAB PO SCH (08:03)
[2023-04-17] MEDS: MORPHINE 2 MG/ML 1ML VIAL IV PRN ×2 (08:03→13:02)
[2023-04-17] MEDS: MIRALAX *UNIT DOSE* 17GM PACKET PO SCH ×2 (08:03→19:49)
[2023-04-17] MEDS: ENOXAPARIN 100MG/1ML SYRINGE (J1650 PER 10MG) SC SCH ×2 (08:03→19:49)
[2023-04-17] MEDS: SERTRALINE HCL 50 MG TAB PO SCH (08:03)
[2023-04-17] MEDS ORDERED: HOME MED LIST COMPLETE! XX SCH (08:05)
[2023-04-17] MEDS: IBUPROFEN 800 MG TAB PO SCH ×2 (10:38→18:03)
[2023-04-17] MEDS: WARFARIN SOD 7.5MG TAB PO SCH (12:35)
[2023-04-17] MEDS ORDERED: GABAPENTIN 300 MG CAP PO PRN (16:10)
[2023-04-17] MEDS ORDERED: LR 500 ML IV ONE (16:15)
[2023-04-17] MEDS: SIMETHICONE 80MG CHEW TAB PO SCH (18:02)
[2023-04-17] MEDS: hydrOXYzine 50 MG TAB PO SCH (19:48)
[2023-04-18] MEDS: SIMETHICONE 80MG CHEW TAB PO SCH ×4 (02:00→17:30)
[2023-04-18] MEDS: IBUPROFEN 800 MG TAB PO SCH ×3 (02:56→17:30)
[2023-04-18] MEDS: oxyCODONE 5MG TAB PO PRN (02:57)
[2023-04-18 05:52] VITALS: BP 114/73; TEMP 96.8; O2SAT 94
[2023-04-18 06:17] LABS: BASO % 0.3 % (0.0-1.0); EOS # 0.1 10^3/uL (0.0-0.5); HEMATOCRIT 33.4 % (36.0-47.0); HEMOGLOBIN 10.7 g/dl (12.0-15.5); LYMPH # 2.9 10^3/uL (1.5-5.0); LYMPH % 29.5 % (24.0-44.0); MEAN CORPUSCULAR HEMOGLOBIN 31.2 pg (27.0-33.0); MEAN CORPUSCULAR VOLUME 97.4 fl (80.0-96.0); MONO # 0.7 10^3/uL (0.0-0.8); MONO % 6.9 % (2.0-8.0); NEUTROPHILS # 6.1 10^3/uL (1.5-8.5); NEUTROPHILS % 61.7 % (36.0-66.0); PLATELET COUNT, AUTOMATED 203 10^3/uL (150-450); RED BLOOD COUNT 3.43 10^6/uL (4.00-5.40); WHITE BLOOD COUNT 9.8 10^3/uL (4.0-10.0)
[2023-04-18 06:50] LABS: ALBUMIN 2.8 G/DL (3.2-5.2); ALKALINE PHOSPHATASE 56 U/L (46-116); ALT/SGPT 18 U/L (7.0-40); AST/SGOT 26 U/L (<34); BILIRUBIN,TOTAL 0.3 MG/DL (0.3-1.2); BLOOD UREA NITROGEN 7 MG/DL (9-23); CALCIUM LEVEL 9.2 MG/DL (8.5-10.1); CARBON DIOXIDE LEVEL 24 MMOL/L (20-31); CHLORIDE LEVEL 109 MMOL/L (98-107); CREATININE FOR GFR 0.75 MG/DL (0.55-1.30); GLOMERULAR FILTRATION RATE > 60.0 (>58); GLUCOSE, FASTING 118 MG/DL (60-100); POTASSIUM SERUM 3.9 MMOL/L (3.5-5.1); SODIUM LEVEL 139 MMOL/L (136-145); TOTAL PROTEIN 5.9 G/DL (5.7-8.2)
[2023-04-18] MEDS: TOPIRAMATE (TopAMAX) 100 MG TAB PO SCH (09:02)
[2023-04-18] MEDS: SERTRALINE HCL 50 MG TAB PO SCH (09:02)
[2023-04-18] MEDS: ACETAMINOPHEN 500 MG TAB PO SCH ×3 (09:03→20:13)
[2023-04-18] MEDS: MIRALAX *UNIT DOSE* 17GM PACKET PO SCH ×2 (09:03→20:14)
[2023-04-18] MEDS: ENOXAPARIN 100MG/1ML SYRINGE (J1650 PER 10MG) SC SCH ×2 (09:04→20:13)
[2023-04-18] MEDS ORDERED: SIMETHICONE 80MG CHEW TAB PO ONE (09:15)
[2023-04-18 10:00] VITALS: BP 133/78; TEMP 98.1; O2SAT 94
[2023-04-18 14:00] VITALS: BP 128/76; TEMP 98.2; O2SAT 96
[2023-04-18] MEDS: WARFARIN SOD 7.5MG TAB PO SCH (17:30)
[2023-04-18] MEDS: hydrOXYzine 50 MG TAB PO SCH (20:13)
[2023-04-18 20:52] VITALS: BP 128/79; TEMP 97.5; O2SAT 97
[2023-04-19] MEDS: SIMETHICONE 80MG CHEW TAB PO SCH ×3 (00:48→13:05)
[2023-04-19] MEDS: IBUPROFEN 800 MG TAB PO SCH ×2 (00:48→09:20)
[2023-04-19] MEDS: ACETAMINOPHEN 500 MG TAB PO SCH ×3 (00:49→14:16)
[2023-04-19 05:54] VITALS: BP 145/90; TEMP 97.7; O2SAT 97
[2023-04-19 06:31] LABS: HEMATOCRIT 34.2 % (36.0-47.0); HEMOGLOBIN 11.1 g/dl (12.0-15.5); MEAN CORPUSCULAR HEMOGLOBIN 31.6 pg (27.0-33.0); MEAN CORPUSCULAR HGB CONC 32.5 g/dl (32.0-36.5); MEAN CORPUSCULAR VOLUME 97.4 fl (80.0-96.0); PLATELET COUNT, AUTOMATED 212 10^3/uL (150-450); RED BLOOD COUNT 3.51 10^6/uL (4.00-5.40); WHITE BLOOD COUNT 8.1 10^3/uL (4.0-10.0)
[2023-04-19] MEDS: MIRALAX *UNIT DOSE* 17GM PACKET PO SCH (09:18)
[2023-04-19] MEDS: ENOXAPARIN 100MG/1ML SYRINGE (J1650 PER 10MG) SC SCH (09:18)
[2023-04-19] MEDS: TOPIRAMATE (TopAMAX) 100 MG TAB PO SCH (09:20)
[2023-04-19 09:22] VITALS: BP 129/89
[2023-04-19] MEDS: SERTRALINE HCL 50 MG TAB PO SCH (09:23)
== END 2023-04-19 15:12 | disposition home or self-care (01) | DRG 743 ==
LOC: M OR 09:03 → EDSTATUS 10:45 → M MSPAV 17:28
PROVIDERS: ADMIT Obstetrics & Gynecology; ATTEND Obstetrics & Gynecology
PROC: 0UT90ZZ Resection of Uterus, Open Approach (ICD-10-PCS; principal; 2023-04-16 10:45)
PROC: 0UT70ZZ Resection of Bilateral Fallopian Tubes, Open Approach (ICD-10-PCS; 2023-04-16 10:45)
DX: N93.9 Abnormal uterine and vaginal bleeding, unspecified (principal); D25.9 Leiomyoma of uterus, unspecified; D50.9 Iron deficiency anemia, unspecified; Z86.711 Personal history of pulmonary embolism; Z79.01 Long term (current) use of anticoagulants; I10 Essential (primary) hypertension; F32.A Depression, unspecified; G47.00 Insomnia, unspecified; Z91.040 Latex allergy status; Z88.8 Allergy status to other drugs, medicaments and biological substances; Z79.899 Other long term (current) drug therapy; Z20.822 Contact with and (suspected) exposure to COVID-19

== ENCOUNTER → 2023-06-23 | Outpatient (CLI) | payer OTHER ==
[~2023-06-23] MED LIST changes: +ENOX100I3 SC; +OXYC-517 PO
== END ==
LOC: M PLALAB 11:05
PROVIDERS: ATTEND Internal Medicine Hematology
DX: D50.9 Iron deficiency anemia, unspecified (principal)

== ENCOUNTER → 2023-12-29 | Outpatient (CLI) | payer OTHER ==
[2023-12-29 12:26] LABS: BASO % 0.7 % (0.0-1.0); EOS # 0.1 10^3/uL (0.0-0.5); EOS % 0.9 % (0.0-3.0); HEMATOCRIT 42.5 % (36.0-47.0); HEMOGLOBIN 13.9 g/dl (12.0-15.5); LYMPH % 36.3 % (24.0-44.0); MEAN CORPUSCULAR HEMOGLOBIN 30.3 pg (27.0-33.0); MEAN CORPUSCULAR HGB CONC 32.7 g/dl (32.0-36.5); MEAN CORPUSCULAR VOLUME 92.6 fl (80.0-96.0); MONO # 0.5 10^3/uL (0.0-0.8); MONO % 8.9 % (2.0-8.0); PLATELET COUNT, AUTOMATED 228 10^3/uL (150-450); RED BLOOD COUNT 4.59 10^6/uL (4.00-5.40); WHITE BLOOD COUNT 5.6 10^3/uL (4.0-10.0)
[2023-12-29 12:40] LABS: INR 2.19; PROTHROMBIN TIME 23.6 SECONDS (12.5-14.5)
[2023-12-29 13:00] LABS: THYROID STIMULATING HORMONE 2.545 uIU/ML (0.55-4.78)
[2023-12-29 13:01] LABS: FERRITIN 102.9 NG/ML (7.3-270.7)
== END ==
LOC: M PLALAB 11:18
PROVIDERS: ATTEND Internal Medicine Hematology
DX: D50.9 Iron deficiency anemia, unspecified (principal); Z79.01 Long term (current) use of anticoagulants